=== PATIENT | female | born 1955 | race Caucasian/White ===

== ENCOUNTER 2022-07-11 20:44 | Emergency (ER) | payer OTHER ==
[~2022-07-11] VITALS: Ht 152.4 cm; Wt 72.6 kg
[2022-07-11] MEDS ORDERED: TOPIRAMATE100 M2 PO (21:11)
[2022-07-11] MEDS ORDERED: BASAG SOL SC (21:12)
[2022-07-11] MEDS ORDERED: NOVOLOG FL100 UNIT/2 SC (21:12)
[2022-07-11] MEDS ORDERED: BUPROPION HYDR150 M3 PO (21:12)
[2022-07-11] MEDS ORDERED: POTASSIUM CHLO10 ME4 PO (21:13)
[2022-07-11] MEDS ORDERED: ATORVASTATIN CA40 M1 PO (21:17)
[2022-07-11] MEDS ORDERED: DONEPEZIL HCL10 MG PO (21:17)
[2022-07-11] MEDS ORDERED: AMITRIPTYLINE H10 M1 PO (21:17)
[2022-07-11] MEDS ORDERED: LEVOTHYROXINE50 MCG PO (21:18)
[2022-07-11] MEDS ORDERED: OMEPRAZOLE MAGN20 MG PO (21:18)
[2022-07-11] MEDS ORDERED: FLUOXETINE HYDR20 M1 PO (21:18)
[2022-07-11] MEDS ORDERED: METFORMIN HYDR500 MG PO (21:18)
[2022-07-11 22:15] LABS: BASO % 0.3 % (0.0-1.0); EOS # 0.1 10*3/uL (0.0-0.4); HEMATOCRIT 37.5 % (37.0-47.0); LYMPH # 1.9 10*3/uL (1.3-4.4); LYMPH % 27.5 % (27.0-41.0); MEAN CELL VOLUME 87.4 fl (81.0-99.0); MEAN PLATELET VOLUME 10.5 fl (9.6-12.3); MONO # 0.5 10*3/uL (0.1-1.0); MONO % 7.1 % (3.0-9.0); NEUT # 4.4 10*3/uL (2.3-7.9); NEUT % 63.8 % (47.0-73.0); PLATELET COUNT AUTOMATED 134 10*3/uL (130-400); RED BLOOD COUNT 4.29 10*6/uL (4.10-5.10); RED CELL DISTRI WIDTH 13.5 % (0-14.5)
[2022-07-11 22:56] LABS: POTASSIUM 4.1 mmol/L (3.4-5.1); TOTAL PROTEIN 6.4 gm/dL (6.0-8.0)
== END 2022-07-12 02:20 | disposition home or self-care (01) ==
LOC: ED 20:44
PROVIDERS: Physician Assistant
DX: R22.1 Localized swelling, mass and lump, neck (principal); K04.7 Periapical abscess without sinus; Z88.6 Allergy status to analgesic agent